=== PATIENT | female | born 1980 | race Caucasian/White ===

== ENCOUNTER 2024-05-25 01:10 | Emergency (ER) | payer MEDICAID, SELFPAY ==
[2024-05-25 01:18] VITALS: BP 158/101; PULSE 96; TEMP 36.6; O2SAT 100; BMI 34.0
--- NOTE | 2024-05-25 01:18 | XR_ITS ---
The [address] [address] Patient Name: BRUNO MURRELL MRN: [id number] date: 1980 Sex: F Assigned Patient Location: ED.MAIN Current Patient Location: ED.MAIN Accession/Order Number: [id number] Exam Date: 05/25/2024 01:50 Report Date: 05/25/2024 06:15 At the request of: LEIDA APONTE Procedure: XR chest 1V EXAM: XR chest 1V HISTORY: SOB COMPARISON: None. TECHNIQUE: AP upright portable chest x-ray. FINDINGS: The heart, mediastinum and pulmonary vascularity are within normal limits. The lungs and pleural spaces are clear. There is mild asymmetric elevation of the right diaphragm. The bony thorax appears intact. XR/XR chest 1V IMPRESSION: Nonacute chest. Electronically authenticated by: MARIO PARIS Date: 05/25/2024 06:15
--- NOTE | 2024-05-25 01:18 | ECG_ITS ---
The [facility] Test Date: 2024-05-25 Pat Name: KENNY MURRELL Department: Room: - Gender: Female Oven Attendant: : 1980 Requested By: Order Number: [id number] Reading MD: FABRICE GAVIN Measurements Intervals [place] Rate: 98 P: 73 DE: 136 QRS: 74 QRSD: 78 T: 42 QT: 360 QTc: 415 Interpretive Statements 1100 Sinus rhythm 1570 with occasional ventricular premature complexes 9140 abnormal rhythm ECG No previous ECG available for comparison Electronically Signed On 05-25-2024 6:41:55 EDT by FABRICE GAVIN
--- NOTE | 2024-05-25 01:19 | ED.SOB1 ---
HPI - SOB/Dyspnea General Chief Complaint: Shortness of Breath/Dyspnea Stated Complaint: OTHER Time Seen by Provider: 05/25/24 01:13 History of Present Illness HPI Narrative: 44-year-old female presents to the emergency department for shortness of breath. She states this started this morning and recently she has been coughing up some green phlegm. She was given an aerosol treatment by the paramedics and feels improved. She thought she might be having a panic attack as well. No fever. She does not complain to me of chest pain. Related Data Previous Rx's ?Medication ?Instructions ?Recorded albuterol sulfate 90 mcg/actuation 2 inh inhalation Q4H PRN shortness 05/25/24 aerosol inhaler of breath or wheezing #8.5 grams azithromycin 250 mg tablet See Rx Instructions PO .COMPLEX #6 05/25/24 (Zithromax Z-Tim) tabs benzonatate 100 mg capsule 100 mg PO TID PRN cough #20 caps 05/25/24 Allergies Allergy/AdvReac Type Severity Reaction Status Date / Time No Known Drug Allergies Allergy Verified 05/25/24 01:25 Review of Systems ROS Narrative A ten point review of systems is negative except as noted above. PFSH [facility] Medical History (Updated 05/25/24 @ 02:36 by Ron Espinoza MD) Psychiatric diagnosis ?F99 - Mental disorder, not otherwise specified (ICD-10) High cholesterol ?E78.00 - Pure hypercholesterolemia, unspecified (ICD-10) Thyroid disease ?E07.9 - Disorder of thyroid, unspecified (ICD-10) Surgical History (Updated 05/25/24 @ 01:27 by Yaritza Mendoza) H/O cone biopsy of cervix ?Z98.890 - Other specified postprocedural states (ICD-10) Social History Little interest or pleasure in doing things: not at all Feeling down, depressed, or hopeless: not at all Exam Narrative Exam Narrative: Nurses note and vital signs reviewed and patient is not hypoxic. General: The patient appears in no acute respiratory distress. She is hyperventilating Skin: Warm, dry, no pallor noted. There is no rash noted. Head: Normocephalic, atraumatic Eye: Normal conjunctiva, no drainage Ears, Nose, Mouth, and Throat: oral mucosa is moist. Nares patent. Cardiovascular: Regular Rate and Rhythm, not tachycardic Respiratory: Tachypneic, breath sounds are equal and clear. No rales or rhonchi. Good air movement present Back: non-tender GI: Soft and nontender Musculoskeletal: The patient has no evidence of calf tenderness, no pitting edema, symmetrical pulses noted bilaterally Neurological: A&O, normal speech Psychiatric: Cooperative Constitutional Vital Signs, click to edit/add: Last Vital Signs Temp 98 F 05/25/24 01:18 Pulse 91 H 05/25/24 02:30 Resp 20 05/25/24 02:30 BP 125/85 05/25/24 02:30 Pulse Ox 99 05/25/24 02:30 O2 Del Method Room Air 05/25/24 01:18 Course Vital Signs Vital signs: Vital Signs Temperature 98 F 05/25/24 01:18 Pulse Rate 96 H 05/25/24 01:18 Respiratory Rate 32 H 05/25/24 01:18 Blood Pressure 158/101 H 05/25/24 01:18 Pulse Oximetry 100 05/25/24 01:18 Oxygen Delivery Method Room Air 05/25/24 01:18 Temperature 98 F 05/25/24 01:18 Pulse Rate 91 H 05/25/24 02:30 Respiratory Rate 20 05/25/24 02:30 Blood Pressure 125/85 05/25/24 02:30 Pulse Oximetry 99 05/25/24 02:30 Oxygen Delivery Method Room Air 05/25/24 01:18 MDM - SOB/Dyspnea MDM Narrative Medical decision making narrative: The patient is feeling improved after aerosol treatment. She did not have an inhaler at home. Chest x-ray my interpretation suggest some haziness in the left lung base and should be treated with Zithromax for pneumonia. She was also prescribed Tessalon and albuterol inhaler. Treatment diagnosis and follow-up were discussed with the patient. COVID and influenza test were negative. Differential Diagnosis Differential diagnosis: Likely community acquired pneumonia and asthma with exacerbation Lab Data Attestation: I reviewed the patient's lab results. Labs: Lab Results 05/25/24 05/25/24 Range/Units 01:38 01:45 WBC 8.0 (4.0-11.0) 10^3/uL RBC 4.75 (4.20-5.40) 10^6/uL Hgb 14.3 (12.0-16.0) g/dL Hct 42.8 (36.0-48.0) % MCV 90.1 (81.0-99.0) fL MCH 30.1 (26.7-34.0) pg MCHC 33.4 (29.9-35.2) g/dL RDW 13.0 (11.0-15.0) % Plt Count 317 (150-450) 10^3/uL MPV 11.1 (9.5-13.5) fL Neut % (Auto) 68.2 (43.0-75.0) % Lymph % (Auto) 24.8 (20.5-60.0) % Ramsey % (Auto) 4.7 (1.7-12.0) % Eos % (Auto) 1.0 (0.9-7.0) % Baso % (Auto) 0.4 (0.2-2.0) % Neut # (Auto) 5.5 (1.4-6.5) 10^3/uL Lymph # (Auto) 2.0 (1.2-3.8) 10^3/uL Ramsey # (Auto) 0.4 (0.3-0.8) 10^3/uL Eos # (Auto) 0.1 (0.0-0.7) 10^3/uL Baso # (Auto) 0.0 (0.0-0.1) 10^3/uL Abs Immat Gran (auto) 0.07 H (0.00-0.03) 10^3/uL Imm/Tot Granulo (auto) 0.9 H (0.0-0.5) % Sodium 141 (136-145) mmol/L Potassium 3.1 L (3.5-5.1) mmol/L Chloride 105 (98-107) mmol/L Carbon Dioxide 21.4 (21.0-32.0) mmol/L Anion Gap 17.7 BUN 8.0 (7.0-18.0) mg/dL Creatinine 1.20 H (0.55-1.02) mg/dL Est GFR ( Amer) 59 L (>=60 mL/min/1.73m^2) Est GFR (Non-Af Amer) 49 L (>=60 mL/min/1.73m^2) BUN/Creatinine Ratio 6.7 Glucose 102 (74-106) mg/dL Calcium 10.0 (8.5-10.1) mg/dL Influenza Type A Ag Negative Influenza Type B Ag Negative SARS-CoV-2 Ag (CV2AG) Negative (NEGATIVE) Imaging Data Chest x-ray: My impression: Slight haziness of the left lung base suggestive of an early infiltrate ECG Data Attestation: I personally reviewed and interpreted this ECG as follows: (EKG on my interpretation shows sinus rhythm with a rate of 98 and no acute change.) Discharge Plan Discharge Chief Complaint: Shortness of Breath/Dyspnea Clinical Impression: Pneumonia Patient Disposition: Home, Self-Care Time of Disposition Decision: 02:36 Condition: Good Mode of Transportation: Private Vehicle Prescriptions / Home Meds: New azithromycin [Zithromax Z-Tim] 250 mg tablet See Rx Instructions .ROUTE .COMPLEX Qty: 6 0RF Rx Instructions: For 250 mg dose pack: take 500 mg today (day 1), then 250 mg for 4 days (days 2-5) benzonatate 100 mg capsule 100 mg PO TID PRN (Reason: cough) Qty: 20 0RF albuterol sulfate 90 mcg/actuation HFA aerosol inhaler 2 inh inhalation Q4H PRN (Reason: shortness of breath or wheezing) Qty: 8.5 0RF Print Language: Bulgarian Instructions: Community Acquired Pneumonia (ED)
[2024-05-25 01:54] LABS: Basophils Percent Auto 0.4 % (0.2-2.0); Eosinophils Absolute Auto 0.1 10^3/uL (0.0-0.7); Hematocrit 42.8 % (36.0-48.0); Hemoglobin 14.3 g/dL (12.0-16.0); Immature Granulocytes Abs Auto 0.07 10^3/uL (0.00-0.03); Immature Granulocytes Pct Auto 0.9 % (0.0-0.5); Lymphocytes Percent Auto 24.8 % (20.5-60.0); Mean Corpuscular HGB Conc 33.4 g/dL (29.9-35.2); Mean Corpuscular Hemoglobin 30.1 pg (26.7-34.0); Mean Corpuscular Volume 90.1 fL (81.0-99.0); Mean Platelet Volume 11.1 fL (9.5-13.5); Monocytes Absolute Auto 0.4 10^3/uL (0.3-0.8); Monocytes Percent Auto 4.7 % (1.7-12.0); Neutrophils Absolute Auto 5.5 10^3/uL (1.4-6.5); Neutrophils Percent Auto 68.2 % (43.0-75.0); Platelet Count 317 10^3/uL (150-450); Red Blood Count 4.75 10^6/uL (4.20-5.40)
[2024-05-25 02:04] VITALS: BP 142/88; PULSE 88; O2SAT 100
[2024-05-25 02:06] LABS: Anion Gap 17.7; BUN Creatinine Ratio 6.7; Carbon Dioxide 21.4 mmol/L (21.0-32.0); Chloride 105 mmol/L (98-107); Estimated GFR (African America 59 (>=60 mL/min/1.73m^2); Estimated GFR (Non-African Ame 49 (>=60 mL/min/1.73m^2); Glucose 102 mg/dL (74-106); Potassium 3.1 mmol/L (3.5-5.1); Sodium 141 mmol/L (136-145)
[2024-05-25 02:12] LABS: Influenza Virus A Antigen Negative; Influenza Virus B Antigen Negative; Internal Control Within Normal Limits
[2024-05-25 02:13] LABS: Internal Control Within Normal Limits; SARS-CoV-2 Ag NEGATIVE (NEGATIVE)
[2024-05-25 02:30] VITALS: BP 125/85; PULSE 91; O2SAT 99
== END 2024-05-25 02:52 | disposition home or self-care (01) ==
PROVIDERS: Emergency Provider Emergency Medicine
DX: J18.9 Pneumonia, unspecified organism (principal); Z20.822 Contact with and (suspected) exposure to COVID-19
CPT/HCPCS: 36415; 71045; 80048; 85025; 87804; 87811; 93005; 99285